=== PATIENT | male | born 1945 | race Caucasian/White ===

== ENCOUNTER 2016-04-29 08:06 | Inpatient (IN) ==
[2016-04-29 08:45] LABS: Basophils % 0.2 %; Hematocrit 41.3 % (37.5-50.1); Hemoglobin 13.7 g/dL (12.9-16.9); Immature Granulocytes % 0.4 % (0-4); Lymphocytes # 2.3 K/mcL (0.6-4.6); Lymphocytes % 9.7 %; Mean Corpuscular HGB Conc 33.2 g/dL (31.6-35.5); Mean Corpuscular Hemoglobin 29.4 pg (28.0-33.3); Mean Corpuscular Volume 88.6 fL (83.0-100.0); Monocytes # 2.2 K/mcL (0.0-1.3); Monocytes % 9.1 %; Neutrophils # 19.2 K/mcL (1.6-8.9); Platelet Count 294 K/mcL (140-400); Red Blood Count 4.66 M/mcL (4.19-5.50); Red Cell Distribution Width 14.1 % (11.5-14.5); Segmented Neutrophils % 80.6 %
[2016-04-29 08:46] LABS: INR 1.5; Prothrombin Time 16.4 Seconds (9.4-12.1)
[2016-04-29 08:47] LABS: Basophils # 0.1 K/mcL (0.0-0.2)
--- NOTE | 2016-04-29 08:51 | Emergency Department Note ---
Disposition Clinical Impression: Weakness, Sepsis, Dysphagia Disposition: Admitted As Inpatient Condition: Serious Neuro HPI - General Chief Complaint: ED Weakness Stated Complaint: weakness Time Seen by Provider: 04/29/16 08:06 Source: patient, EMS Limitations: no limitations, language barrier, altered mental status, physical limitation Nursing Notes Reviewed: Yes Vital Signs Reviewed: Yes - History of Present Illness HPI Narrative: 70 year old with copd and gerd, chronic unexplained contractures acute onset at 0720 this morning with garbled speech and right facial weakness improving during transport initial vitals were hypotensive and bradycardia sugar 116 on accucheck by ems Onset of Symptoms Date: 04/29/16 Onset of Symptoms Time: 07:20 Symptom Onset Unknown: Yes Timing confirmed by: caregiver Location: right face, right arm History of same: Yes Severity: moderate Quality: weakness Improves with: none Worsens with: none Context: sudden onset On Anticoagulants: No - Related Data Home Medications: Home Medications Medication Instructions Recorded Confirmed Bifidobacterium Infantis [Align] 4 mg PO DAILY 04/29/16 04/29/16 Gabapentin [Neurontin] 300 mg PO TID 04/29/16 04/29/16 Lisinopril [Zestril] 5 mg PO DAILY 04/29/16 04/29/16 Loratadine [Allergy Relief] 10 mg PO 04/29/16 Loratadine [Claritin] 10 mg PO 04/29/16 Metoclopramide [Reglan] 5 mg PO QIDAC 04/29/16 04/29/16 Oxycodone HCl [Oxaydo] 10 mg PO 04/29/16 Pantoprazole Sodium [Protonix] 40 mg PO DAILY 04/29/16 04/29/16 Sucralfate [Carafate] 1 gm PO 04/29/16 Allergies/Adverse Reactions: Allergies Allergy/AdvReac Type Severity Reaction Status Date / Time No Known Allergies Allergy Verified 09/29/14 14:26 All systems ED: reviewed and negative except as stated. Limitations: ROS unobtainable due to patients medical condition (poor) Constitutional: Reports: weakness. Denies: fever, chills Eyes: Denies: eye pain, eye discharge, vision change ENT ED: Denies: ear pain, throat pain, dental pain, hearing loss, epistaxis, congestion, dysphagia Cardiovascular: Denies: chest pain, palpitations, dyspnea on exertion, edema, syncope Respiratory: Reports: cough, wheezes, sputum production Gastrointestinal: Denies: abdominal pain, nausea, vomiting, diarrhea, constipation, hematemesis, melena, hematochezia Genitourinary: Denies: urgency, dysuria, frequency, hematuria Musculoskeletal: Reports: as per HPI Integumentary: Denies: rash, abrasion, lesions Neurological: Reports: as per HPI Psychiatric: Reports: as per HPI Endocrine: Denies: fatigue Allergic/Immunologic: Denies: facial swelling, urticaria Past Medical History - Past Medical History Medical history: Reports: COPD, GERD, hypertension, other (contractures, unexplained) Surgical history: Reports: orthopedic, other (Knee surgery), other (? esophageal dilatation, tonsillectomy) Psychiatric history: Reports: no psych history - Social History Smoking Status: Former smoker Smokeless Tobacco Status: No Alcohol use: Reports: none Drug use: Reports: none Physical Exam - General Limitations: language barrier General appearance: alert, in no apparent distress - Head Head exam: atraumatic - Eye Eye exam: Present: normal appearance, PERRL, EOMI - ENT ENT exam: normal exam - Neck Neck exam: Present: normal inspection - Chest Chest inspection: Present: symmetric chest wall rise - Respiratory Respiratory exam: Present: wheezes - Cardiovascular Cardiovascular exam: Present: regular rate, bradycardia - Abdominal Exam Abdominal exam: Present: soft, Non-Tender - Extremities Exam Extremities exam: Present: other (contractures) - Neurological Exam Neurological exam: Present: alert, CN II-XII intact - Psychiatric Psychiatric exam: Present: depressed - Skin Skin exam: Present: warm Course Course Narrative: patient seen and examined as arrive in [place] to [place] [facility] stroke activation Dr. ema smith and since infectious etiology probably hold TPA improving trop elevated wbc markedly elevated fluid bolus and antibiotics patient improved, stable and no change in troponin stable for admit, low risk here. full code Vital Signs Temperature 98.0 F 04/29/16 08:17 Pulse Rate 61 04/29/16 08:17 Respiratory Rate 18 04/29/16 08:17 Blood Pressure 133/76 04/29/16 08:17 O2 Sat by Pulse Oximetry 98 04/29/16 08:17 Temperature 98.1 F 04/29/16 18:32 Pulse Rate 58 04/29/16 18:32 Respiratory Rate 18 04/29/16 18:32 Blood Pressure 138/90 04/29/16 18:32 O2 Sat by Pulse Oximetry 99 04/29/16 18:32 Oxygen Delivery Oxygen Delivery Nasal Cannula Neuro Symptoms/Deficit - Differential Diagnosis Likely: cerebrovascular accident, transient cerebral ischemia, delirium - Medical Records Medical records reviewed: Yes I reviewed the patient's medical records. - Lab Data Lab results reviewed: Yes I reviewed the patient's lab results. Result diagrams: 04/29/16 08:30 04/29/16 08:30 Lab Results 04/29/16 04/29/16 04/29/16 Range/Units 08:21 08:30 08:30 WBC 23.8 H (4.3-11.1) K/mcL RBC 4.66 (4.19-5.50) M/mcL Hgb 13.7 (12.9-16.9) g/dL Hct 41.3 (37.5-50.1) % MCV 88.6 (83.0-100.0) fL MCH 29.4 (28.0-33.3) pg MCHC 33.2 (31.6-35.5) g/dL RDW 14.1 (11.5-14.5) % Plt Count 294 (140-400) K/mcL MPV 10.0 (9.4-12.4) fL Immature Gran % 0.4 (0-4) % Seg Neutrophils % 80.6 % Lymphocytes % 9.7 % Monocytes % 9.1 % Eosinophils % 0.0 % Basophils % 0.2 % Neutrophils # 19.2 H (1.6-8.9) K/mcL Lymphocytes # 2.3 (0.6-4.6) K/mcL Monocytes # 2.2 H (0.0-1.3) K/mcL Eosinophils # 0.0 (0.0-0.6) K/mcL Basophils # 0.1 (0.0-0.2) K/mcL PT 16.4 H (9.4-12.1) Seconds INR 1.5 VBG Lactic Acid (0.5-2.2) mmol/L Sodium (136-145) mEq/L Potassium (3.5-4.5) mEq/L Chloride (98-109) mEq/L Carbon Dioxide (19-29) mEq/L BUN (8-26) mg/dL Creatinine (0.72-1.25) mg/dL Est GFR ( Amer) (> 60) Est GFR (Non-Af Amer) (> 60) BUN/Creatinine Ratio (6-26) Glucose (70-99) mg/dL POC Glucose 110 H (58-89) Calculated Osmolality (280-300) Calcium (8.6-10.8) mg/dL Total Bilirubin (0.2-1.2) mg/dL AST (5-34) Units/L ALT (0-55) Units/L Alkaline Phosphatase (38-126) Units/L Troponin I (0-0.03) ng/mL Serum Total Protein (6.0-8.3) g/dL Albumin (3.5-5.0) g/dL Globulin (2.4-3.5) g/dL Albumin/Globulin Ratio (1.1-2.2) Urine Color (Yellow) Urine Clarity (Clear) Urine pH (5.0-8.0) pH Units Ur Specific [place] (1.010-1.025) Urine Protein (Neg-Trace) mg/dL Urine Glucose (UA) (Normal) mg/dL Urine Ketones (Negative) mg/dL Urine Blood (Negative) Urine Nitrite (Negative) Urine Bilirubin (Negative) Urine Urobilinogen (Normal) mg/dL Ur Leukocyte Esterase (Negative) Urine Microscopic RBC (0-3) per hpf Urine Microscopic WBC (0-3) per hpf Urine Bacteria (None-Few) per hpf Urine Mucus (Few) Ur Culture Indicated? (NO) 04/29/16 04/29/16 04/29/16 Range/Units 08:30 08:30 08:30 WBC (4.3-11.1) K/mcL RBC (4.19-5.50) M/mcL Hgb (12.9-16.9) g/dL Hct (37.5-50.1) % MCV (83.0-100.0) fL MCH (28.0-33.3) pg MCHC (31.6-35.5) g/dL RDW (11.5-14.5) % Plt Count (140-400) K/mcL MPV (9.4-12.4) fL Immature Gran % (0-4) % Seg Neutrophils % % Lymphocytes % % Monocytes % % Eosinophils % % Basophils % % Neutrophils # (1.6-8.9) K/mcL Lymphocytes # (0.6-4.6) K/mcL Monocytes # (0.0-1.3) K/mcL Eosinophils # (0.0-0.6) K/mcL Basophils # (0.0-0.2) K/mcL PT (9.4-12.1) Seconds INR VBG Lactic Acid 1.7 (0.5-2.2) mmol/L Sodium 139 (136-145) mEq/L Potassium 4.2 (3.5-4.5) mEq/L Chloride 105 (98-109) mEq/L Carbon Dioxide 22 (19-29) mEq/L BUN 26 (8-26) mg/dL Creatinine 1.15 (0.72-1.25) mg/dL Est GFR ( Amer) > 60 (> 60) Est GFR (Non-Af Amer) > 60 (> 60) BUN/Creatinine Ratio 23 (6-26) Glucose 109 H (70-99) mg/dL POC Glucose (58-89) Calculated Osmolality 293 (280-300) Calcium 8.8 (8.6-10.8) mg/dL Total Bilirubin 0.7 (0.2-1.2) mg/dL AST 11 (5-34) Units/L ALT 6 (0-55) Units/L Alkaline Phosphatase 83 (38-126) Units/L Troponin I 0.06 H* (0-0.03) ng/mL Serum Total Protein 7.2 (6.0-8.3) g/dL Albumin 3.2 L (3.5-5.0) g/dL Globulin 4.0 H (2.4-3.5) g/dL Albumin/Globulin Ratio 0.8 L (1.1-2.2) Urine Color (Yellow) Urine Clarity (Clear) Urine pH (5.0-8.0) pH Units Ur Specific [place] (1.010-1.025) Urine Protein (Neg-Trace) mg/dL Urine Glucose (UA) (Normal) mg/dL Urine Ketones (Negative) mg/dL Urine Blood (Negative) Urine Nitrite (Negative) Urine Bilirubin (Negative) Urine Urobilinogen (Normal) mg/dL Ur Leukocyte Esterase (Negative) Urine Microscopic RBC (0-3) per hpf Urine Microscopic WBC (0-3) per hpf Urine Bacteria (None-Few) per hpf Urine Mucus (Few) Ur Culture Indicated? (NO) 04/29/16 04/29/16 Range/Units 08:43 09:44 WBC (4.3-11.1) K/mcL RBC (4.19-5.50) M/mcL Hgb (12.9-16.9) g/dL Hct (37.5-50.1) % MCV (83.0-100.0) fL MCH (28.0-33.3) pg MCHC (31.6-35.5) g/dL RDW (11.5-14.5) % Plt Count (140-400) K/mcL MPV (9.4-12.4) fL Immature Gran % (0-4) % Seg Neutrophils % % Lymphocytes % % Monocytes % % Eosinophils % % Basophils % % Neutrophils # (1.6-8.9) K/mcL Lymphocytes # (0.6-4.6) K/mcL Monocytes # (0.0-1.3) K/mcL Eosinophils # (0.0-0.6) K/mcL Basophils # (0.0-0.2) K/mcL PT (9.4-12.1) Seconds INR VBG Lactic Acid (0.5-2.2) mmol/L Sodium (136-145) mEq/L Potassium (3.5-4.5) mEq/L Chloride (98-109) mEq/L Carbon Dioxide (19-29) mEq/L BUN (8-26) mg/dL Creatinine (0.72-1.25) mg/dL Est GFR ( Amer) (> 60) Est GFR (Non-Af Amer) (> 60) BUN/Creatinine Ratio (6-26) Glucose (70-99) mg/dL POC Glucose (58-89) Calculated Osmolality (280-300) Calcium (8.6-10.8) mg/dL Total Bilirubin (0.2-1.2) mg/dL AST (5-34) Units/L ALT (0-55) Units/L Alkaline Phosphatase (38-126) Units/L Troponin I 0.05 H* (0-0.03) ng/mL Serum Total Protein (6.0-8.3) g/dL Albumin (3.5-5.0) g/dL Globulin (2.4-3.5) g/dL Albumin/Globulin Ratio (1.1-2.2) Urine Color [place] A (Yellow) Urine Clarity Cloudy A (Clear) Urine pH 5.0 (5.0-8.0) pH Units Ur Specific [place] 1.015 (1.010-1.025) Urine Protein 30 H (Neg-Trace) mg/dL Urine Glucose (UA) Normal (Normal) mg/dL Urine Ketones Trace H (Negative) mg/dL Urine Blood Moderate H (Negative) Urine Nitrite Negative (Negative) Urine Bilirubin Small H (Negative) Urine Urobilinogen Normal (Normal) mg/dL Ur Leukocyte Esterase Trace H (Negative) Urine Microscopic RBC 5-15 H (0-3) per hpf Urine Microscopic WBC 15-30 H (0-3) per hpf Urine Bacteria Many H (None-Few) per hpf Urine Mucus Few (Few) Ur Culture Indicated? YES A (NO) - Radiology Data Radiology results reviewed: Yes I reviewed the patient's radiology results. Impressions Chest X-Ray 04/29/16 08:08 IMPRESSION: Right basilar linear opacity, atelectasis or focal scarring. Small lucencies projects inferior to the right hemidiaphragm. This is favored to represent artifact. However, upright view of the abdomen is recommended to evaluate for pneumoperitoneum. D/ / Basilio Saravia MD / Basilio Saravia MD Interpreting Provider: Basilio Saravia MD Head CT 04/29/16 08:08 IMPRESSION: No acute intracranial abnormality. Mild microvascular ischemic disease and remote bilateral basal ganglia thalamic lacunar infarcts. Findings were discussed with Kyle Rodrigez at 8:30 am on 04/29/2016. D/ / 04/29/2016 09:02:14 César Gandhi MD / jelly Interpreting Provider: César Gandhi MD Impressions Chest X-Ray 04/29/16 08:08 IMPRESSION: Right basilar linear opacity, atelectasis or focal scarring. Small lucencies projects inferior to the right hemidiaphragm. This is favored to represent artifact. However, upright view of the abdomen is recommended to evaluate for pneumoperitoneum. D/ / Basilio Saravia MD / Basilio Saravia MD Interpreting Provider: Basilio Saravia MD Head CT 04/29/16 08:08 IMPRESSION: No acute intracranial abnormality. Mild microvascular ischemic disease and remote bilateral basal ganglia thalamic lacunar infarcts. Findings were discussed with Kyle Rodrigez at 8:30 am on 04/29/2016. D/ / 04/29/2016 09:02:14 César Gandhi MD / jelly Interpreting Provider: César Gandhi MD Abdomen/Pelvis CT 04/29/16 09:30 IMPRESSION: Bibasilar lower lobe mild ground-glass opacification which could be related to an atypical infectious process or possible mild edema. Bibasilar atelectasis as well. Left-sided pulmonary nodules are identified, measuring 5.4 mm in greatest dimension, all of which appearing stable from September of 2014. Fleischner criteria for multiple solid nodule follow-up is below, which suggests an optional follow-up CT examination at 12 months for a high risk patient. Given the stability over 12 months, these likely represent benign nodules. There is distension of the distal sigmoid colon and rectum, with a large volume of stool which may be related to impaction. There is also a somewhat featureless appearing segment of distal sigmoid colon just above this area of potential impaction, with this type of appearance sometimes seen in the setting of colitis. Of note, no significant vascular disease or occlusion to suggest any concern for ischemia. RECOMMENDATIONS: Fleischner Society guidelines for follow-up and management of incidentally detected pulmonary nodules: Multiple Solid Nodules: Nodule size less than 6 mm In a low-risk patient, no routine follow-up. In a high-risk patient, optional CT at 12 months. Radiology 2017 http://pubs.rsna.org/doi/full/10.1148/radiol.[email or web address] D/ / Ced Ochoa MD / Ced Ochoa MD Interpreting Provider: Ced Ochoa MD Chest CT 04/29/16 09:31 IMPRESSION: Bibasilar lower lobe mild ground-glass opacification which could be related to an atypical infectious process or possible mild edema. Bibasilar atelectasis as well. Left-sided pulmonary nodules are identified, measuring 5.4 mm in greatest dimension, all of which appearing stable from September of 2014. Fleischner criteria for multiple solid nodule follow-up is below, which suggests an optional follow-up CT examination at 12 months for a high risk patient. Given the stability over 12 months, these likely represent benign nodules. There is distension of the distal sigmoid colon and rectum, with a large volume of stool which may be related to impaction. There is also a somewhat featureless appearing segment of distal sigmoid colon just above this area of potential impaction, with this type of appearance sometimes seen in the setting of colitis. Of note, no significant vascular disease or occlusion to suggest any concern for ischemia. RECOMMENDATIONS: Fleischner Society guidelines for follow-up and management of incidentally detected pulmonary nodules: Multiple Solid Nodules: Nodule size less than 6 mm In a low-risk patient, no routine follow-up. In a high-risk patient, optional CT at 12 months. Radiology 2017 http://pubs.rsna.org/doi/full/10.1148/radiol.[email or web address] D/ / Ced Ochoa MD / Ced Ochoa MD Interpreting Provider: Ced Ochoa MD - EKG Data EKG attestation: Yes I reviewed and interpreted this EKG. EKG shows normal: sinus rhythm NIH Stroke Scale - Level of Consciousness LOC: Alert - LOC Questions LOC Questions: Answers both correctly - LOC Commands LOC Commands: Performs both correctly - Best Gaze Best Gaze: Normal - Visual Visual: No visual loss - Facial Palsy Facial Palsy: Normal - Motor Arms Motor Arm-Right: Some effort against gravity, limb drifts to bed - Extinction and Inattention Extinction and Inattention: Normal TPA Checklist - Source Information Source: Patient - LKW: 3-4.5 hrs Add. Contraindications Patient/family understanding: The patient/family members have been counseled and understood the risk, benefit , and alternatives of treatment.
[2016-04-29 08:54] LABS: Bilirubin,Urine Small (Negative); Blood,Urine Moderate (Negative); Clarity,Urine Cloudy (Clear); Color,Urine Amber (Yellow); Glucose,Urine (UA) Normal (Normal); Ketones,Urine Trace mg/dL (Negative); Leukocyte Esterase,Urine Trace (Negative); Nitrite,Urine Negative (Negative); Protein,Urine 30 mg/dL (Neg-Trace); Specific Gravity,Urine 1.015 (1.010-1.025); Urobilinogen,Urine Normal (Normal)
[2016-04-29 09:02] LABS: Bacteria,Urine Many per hpf (None-Few); Mucus,Urine Few (Few); WBC,Urine 15-30 per hpf (0-3)
[2016-04-29 09:06] LABS: Alanine Aminotransferase 6 Units/L (0-55); Albumin 3.2 g/dL (3.5-5.0); Albumin/Globulin Ratio 0.8 (1.1-2.2); Alkaline Phosphatase 83 Units/L (38-126); Aspartate Amino Transferase 11 Units/L (5-34); BUN/Creatinine Ratio 23 (6-26); Bilirubin,Total 0.7 mg/dL (0.2-1.2); Blood Urea Nitrogen 26 mg/dL (8-26); Calcium 8.8 mg/dL (8.6-10.8); Carbon Dioxide 22 mEq/L (19-29); Chloride 105 mEq/L (98-109); Glucose 109 mg/dL (70-99); Osmolality,Calculated 293 (280-300); Potassium 4.2 mEq/L (3.5-4.5); Sodium 139 mEq/L (136-145); Total Protein 7.2 g/dL (6.0-8.3); eGFR For African Americans > 60 (> 60); eGFR For Non-African Americans > 60 (> 60)
[2016-04-29] MEDS ORDERED: Piperacillin/Tazobactam 3.375 GM in D5% in Water (Mini-Bag+) 100 ML IVPB ONE (09:15)
[2016-04-29] MEDS ORDERED: 0.9 % Sodium Chloride 500 ML IVC ONE (09:15)
[2016-04-29] MEDS ORDERED: 0.9 % Sodium Chloride 1,000 ML IVC SCH (11:45)
[2016-04-29] MEDS ORDERED: Naloxone 0.4 MG/ML INJ IVP PRN (14:17)
[2016-04-29] MEDS: Gabapentin 300 MG CAPSULE PO SCH ×2 (15:36→20:32)
[2016-04-29] MEDS: 0.9 % Sodium Chloride 1,000 ML IVC SCH ×2 (15:37→23:15)
--- NOTE | 2016-04-29 15:39 | Internal Med History&Physical ---
Date of Encounter: 04/29/16 Time of Encounter: 15:05 Assessment and Plan (1) Pneumonia Current visit: Yes Status: Acute He has been started on Zosyn. Will add lactobacillus. Further workup will be done as needed. Qualifiers: Pneumonia type: due to unspecified organism Laterality: bilateral Lung location: lower lobe of lung Qualified Code(s): J18.9 - Pneumonia, unspecified organism (2) Hypertension Current visit: Yes Status: Chronic Continue Zestril Qualifiers: Hypertension type: essential hypertension Qualified Code(s): I10 - Essential (primary) hypertension (3) UTI (urinary tract infection) Current visit: Yes Status: Acute He has been started on Zosyn. Urine and blood cultures have been ordered. Further workup will be done as needed. Qualifiers: Urinary tract infection type: site unspecified Hematuria presence: with hematuria Qualified Code(s): N39.0 - Urinary tract infection, site not specified; R31.9 - Hematuria, unspecified Internal Medicine - H&P: HPI Chief complaint: Acute neurologic deficit Admitted From: Long-term Nursing Facility Plans for Post Hospital Care: Transfer Intermediate Care History of present illness: Mr. Hunt is a 70 year old male who was sent to emergency room from [facility] after staff reported him to have onset of garbled speech and right face weakness approximately 0720 today. He was evaluated in emergency room with no evidence of acute infarct or hemorrhage on head CT. He had leukocytosis with possible bibasilar pneumonia seen on chest CT. He was admitted to [facility] floor for ongoing care needs. He is a fair historian at best. He was hospitalized last at [facility] in September 2014 with Ms. and he was discharged to [facility] and has remained there. He reports he has been unable to ambulate for approximately 9 months. Reports he has seen numerous physicians in various cities for a neurologic problem but could not relate what testing was done or what neurologic diagnoses were made. He has had progressive loss of movement in his arms and legs. He denied known large distribution strokes or seizures however head CT done in emergency room did show old bilateral basal ganglia and thalamic lacunar infarcts. Past Med Surg Social Fam HX - Past Medical History Medical history: COPD, GERD, hypertension, other Psychiatric history: no psych history - Past Surgical History Surgical History: orthopedic, other, other - Social History Smoking Status: Former smoker Smokeless Tobacco Status: No Alcohol use: none Drug use: none Internal Medicine - H&P: Meds Bifidobacterium Infantis [Align] 4 mg PO DAILY 04/29/16 [History] Gabapentin [Neurontin] 300 mg PO TID 04/29/16 [History] Lisinopril [Zestril] 5 mg PO DAILY 04/29/16 [History] Loratadine [Allergy Relief] 10 mg PO 04/29/16 [History] Loratadine [Claritin] 10 mg PO 04/29/16 [History] Metoclopramide [Reglan] 5 mg PO QIDAC 04/29/16 [History] Oxycodone HCl [Oxaydo] 10 mg PO 04/29/16 [History] Pantoprazole Sodium [Protonix] 40 mg PO DAILY 04/29/16 [History] Sucralfate [Carafate] 1 gm PO 04/29/16 [History] Allergies No Known Allergies Allergy (Verified 09/29/14 14:26) All Systems PM: A 10-system review of systems was performed and is negative for pertinent findings except as documented above in the HPI. Review of systems: Review of systems from his September 2014 [facility] hospitalization were reviewed and revised as below Gen.: His weight has been stable at approximately 68 kg since the September 2014 hospitalization. Cardiovascular: He has a history of hypertension. He is uncertain if he has had a myocardial infarction the past. He thinks he had a DVT approximately 2009 but did not receive treatment. He denies known heart failure or pulmonary embolus. Respiratory: He smoked from age 8 to age 68 up to 2-1/2 packs per day. He has not had PFTs and does not wear home O2. He has not been tested for sleep apnea. GI: He denies documented trouble with his liver, gallbladder, or exocrine pancreas. He thinks he had a colonoscopy approximately 1999 and an EGD approximately 1989. He states both of these were unremarkable. : He denies hematuria dysuria or kidney stones. Neurologic: As per history of present illness Endocrine: He denies diabetes, thyroid disease, or hyperlipidemia. Hematology/oncology: He denies internal malignancies or other blood disorders. He had anemia during his 2014 [facility] hospitalization but that has resolved. Psychiatric: He denies anxiety, depression, or other mental health issues. Musculoskeletal: he has DJD but denies known gout or osteoporosis. - Constitutional Vitals: Temp Pulse Resp BP Pulse Ox 97.8 F 52 14 123/76 97 04/29/16 13:40 04/29/16 13:40 04/29/16 13:40 04/29/16 13:40 04/29/16 13:58 Exam: Gen.: He is a well-developed well nourished male lying in bed who appears in minimal distress at present time HEENT: Head is atraumatic normocephalic. Eyes: EOMI. There is no scleral icterus. Mouth: Mucosa is moist. Neck: Supple and nontender. There is no thyromegaly or adenopathy noted. Heart: Regular without murmurs gallops or ectopics Lungs: No wheezes or crackles are heard. Abdomen: Soft and nontender. No masses or guarding are noted. Extremities: There is no cyanosis edema or clubbing noted. He has wasting of the interosseous muscles of his hands and appears to have contractures of left fourth and fifth finger. He has limited movement of the other fingers on his hands. He had his right knee contracture. Neurologic: Mental status: He is talkative and seems to be a fair historian. He does not remember some details of his history. Cranial nerves: Facial movements are minimal but appear to be symmetric. EOMI. Tongue protrudes midline. Forehead wrinkles bilaterally. Motor: There is no pronator drift. He does not move his fingers much. He does not move his legs spontaneously. Cerebellar: Finger to nose is intact bilaterally. Skin: Warm and dry Internal Med - H&P Results - Labs CBC & Chem 7: 04/29/16 08:30 04/29/16 08:30
[2016-04-29] MEDS ORDERED: Piperacillin/Tazobactam 3.375 GM in D5% in Water (Mini-Bag+) 100 ML IVPB SCH (16:00)
[2016-04-29] MEDS: *HR* Morphine 2 MG/ML SYRINGE IVP PRN ×3 (18:45→22:34)
[2016-04-29] MEDS: Piperacillin/Tazobactam 3.375 GM in D5% in Water (Mini-Bag+) 100 ML IVPB SCH (18:50)
[2016-04-29] MEDS: Lactobacillus 1 EACH CAP.SPRINK PO SCH (20:32)
[2016-04-30] MEDS: Piperacillin/Tazobactam 3.375 GM in D5% in Water (Mini-Bag+) 100 ML IVPB SCH ×3 (01:38→17:59)
[2016-04-30] MEDS: Lactobacillus 1 EACH CAP.SPRINK PO SCH ×2 (07:31→21:38)
[2016-04-30] MEDS: Gabapentin 300 MG CAPSULE PO SCH ×3 (07:31→21:38)
[2016-04-30] MEDS ORDERED: Lactobacillus 1 EACH CAP.SPRINK PO SCH (09:00)
--- NOTE | 2016-04-30 10:04 | Internal Med Progress Note ---
Date of Encounter: 04/30/16 Time of Encounter: 09:55 - Assessment and plan (1) Pneumonia Current Visit: Yes Status: Acute Assessment and plan: April 30. Continue Zosyn and lactobacillus. Qualifiers: Pneumonia type: due to unspecified organism Laterality: bilateral Lung location: lower lobe of lung Qualified Code(s): J18.9 - Pneumonia, unspecified organism (2) Hypertension Current Visit: Yes Status: Chronic Assessment and plan: April 30. Continue Zestril. Qualifiers: Hypertension type: essential hypertension Qualified Code(s): I10 - Essential (primary) hypertension (3) UTI (urinary tract infection) Current Visit: Yes Status: Acute Assessment and plan: April 30. Continue Zosyn Qualifiers: Urinary tract infection type: site unspecified Hematuria presence: with hematuria Qualified Code(s): N39.0 - Urinary tract infection, site not specified; R31.9 - Hematuria, unspecified - Subjective Interval history: April 30. He has no new complaints. - Constitutional Vitals: Temp Pulse Resp BP Pulse Ox 97.8 F 60 14 163/89 99 04/30/16 08:03 04/30/16 08:03 04/30/16 08:03 04/30/16 08:03 04/30/16 08:03 Exam: He is resting comfortably in bed. His lungs are clear. Smile is symmetric. Tongue protrudes midline. He is scheduled for MBS later today at [facility]. Internal Medicine: Result - Labs CBC & Chem 7: 04/29/16 08:30 04/29/16 08:30 - ABG Interpretation ABG results: PT/INR, D-dimer PT 16.4 Seconds (9.4-12.1) H 04/29/16 08:30 Consult Discharge Plan - Plan Referrals: NO,PCP [Primary Care Provider] - 1 week
[2016-04-30] MEDS: *HR* Morphine 2 MG/ML SYRINGE IVP PRN ×2 (11:32→15:41)
--- NOTE | 2016-04-30 17:46 | Electrocardiograph Report ---
[address] [place], [place] [address] Test Date: 2016-04-29 Pat Name: Kilo Hunt Department: [id number] Room: [facility] Gender: M [employer]ician: : 1945 Requested By: Kyle Rodrigez Order Number: [id number] Reading MD: Leidy Covington Measurements Intervals [place] Rate: 53 P: -37 HI: 209 QRS: -21 QRSD: 98 T: -2 QT: 420 QTc: 402 Interpretive Statements SINUS BRADYCARDIA WITH SINUS ARRHYTHMIA BORDERLINE LEFT AXIS DEVIATION MODERATE VOLTAGE CRITERIA FOR LVH, CONSIDER NORMAL VARIANT NONSPECIFIC T-WAVE ABNORMALITY Electronically Signed On 04-30-2016 17:44:50 EST by Leidy Covington
[2016-04-30] MEDS: 0.9 % Sodium Chloride 1,000 ML IVC SCH (21:49)
[2016-05-01] MEDS: Piperacillin/Tazobactam 3.375 GM in D5% in Water (Mini-Bag+) 100 ML IVPB SCH ×2 (02:04→10:50)
[2016-05-01] MEDS: 0.9 % Sodium Chloride 1,000 ML IVC SCH ×4 (06:42→14:32)
[2016-05-01] MEDS: Gabapentin 300 MG CAPSULE PO SCH ×2 (10:49→14:33)
[2016-05-01] MEDS: Lactobacillus 1 EACH CAP.SPRINK PO SCH (10:49)
[2016-05-01] MEDS: *HR* Morphine 2 MG/ML SYRINGE IVP PRN (13:01)
[2016-05-01 13:59] LABS: Basophils % 0.2 %; Eosinophils # 0.1 K/mcL (0.0-0.6); Eosinophils % 0.7 %; Hematocrit 34.8 % (37.5-50.1); Hemoglobin 11.8 g/dL (12.9-16.9); Immature Granulocytes % 0.2 % (0-4); Lymphocytes # 1.9 K/mcL (0.6-4.6); Lymphocytes % 14.8 %; Mean Corpuscular HGB Conc 33.9 g/dL (31.6-35.5); Mean Corpuscular Hemoglobin 29.4 pg (28.0-33.3); Mean Corpuscular Volume 86.8 fL (83.0-100.0); Mean Platelet Volume 9.8 fL (9.4-12.4); Monocytes % 8.1 %; Neutrophils # 9.7 K/mcL (1.6-8.9); Platelet Count 243 K/mcL (140-400); Red Blood Count 4.01 M/mcL (4.19-5.50); Red Cell Distribution Width 13.1 % (11.5-14.5)
[2016-05-01 14:14] LABS: BUN/Creatinine Ratio 15 (6-26); Blood Urea Nitrogen 10 mg/dL (8-26); Calcium 8.3 mg/dL (8.6-10.8); Carbon Dioxide 21 mEq/L (19-29); Chloride 106 mEq/L (98-109); Glucose 118 mg/dL (70-99); Osmolality,Calculated 284 (280-300); Potassium 3.6 mEq/L (3.5-4.5); Sodium 137 mEq/L (136-145); eGFR For African Americans > 60 (> 60); eGFR For Non-African Americans > 60 (> 60)
--- NOTE | 2016-05-01 14:27 | Discharge Summary ---
Date of Encounter: 05/01/16 Time of Encounter: 08:50 - Discharge Diagnosis (1) Pneumonia Priority: Primary Status: Acute Qualifiers: Pneumonia type: due to unspecified organism Laterality: bilateral Lung location: lower lobe of lung Qualified Code(s): J18.9 - Pneumonia, unspecified organism (2) Hypertension Priority: Secondary Status: Chronic Qualifiers: Hypertension type: essential hypertension Qualified Code(s): I10 - Essential (primary) hypertension (3) UTI (urinary tract infection) Priority: Secondary Status: Acute Qualifiers: Urinary tract infection type: site unspecified Hematuria presence: with hematuria Qualified Code(s): N39.0 - Urinary tract infection, site not specified; R31.9 - Hematuria, unspecified - Discharge Medications Prescriptions: Amoxicillin/Clavulanate [Augmentin] 875 mg PO BIDWM 3 Days Bifidobacterium Infantis [Align] 4 mg PO DAILY 3 Days Home Medications: Gabapentin [Neurontin] 300 mg PO TID 04/29/16 [History] Lisinopril [Zestril] 5 mg PO DAILY 04/29/16 [History] Metoclopramide [Reglan] 5 mg PO QIDAC 04/29/16 [History] Oxycodone HCl [Oxaydo] 10 mg PO 04/29/16 [History] Pantoprazole Sodium [Protonix] 40 mg PO DAILY 04/29/16 [History] Sucralfate [Carafate] 1 gm PO 04/29/16 [History] Amoxicillin/Clavulanate [Augmentin] 875 mg PO BIDWM 3 Days 05/01/16 [Rx] Bifidobacterium Infantis [Align] 4 mg PO DAILY 3 Days 05/01/16 [Rx] Loratadine [Allergy Relief] 10 mg PO DAILY PRN #0 05/01/16 [Rx] Allergies/Adverse Reactions: Allergies No Known Allergies Allergy (Verified 09/29/14 14:26) Date of admission: 04/29/16 15:25 Primary care physician: Ced Wayne M.D. - Patient Status Disposition: Transfer SNF Condition: Serious Overall status at discharge: patient is progressing back to baseline - Discharge Instructions Follow Up With: Ced Wayne MD [Partnered Physician] - 1 week (At [facility]) - Diet and Activity Activity: resume usual activities as tolerated Diet: advance to your usual diet Hospital course: Mr. Hunt is a 70 year old male who was sent to emergency room from [facility] after staff reported him to have onset of garbled speech and right face weakness approximately 0720 today. He was evaluated in emergency room with no evidence of acute infarct or hemorrhage on head CT. He had leukocytosis with possible bibasilar pneumonia seen on chest CT. He was admitted to [facility] for ongoing care needs. The initial orders were written by the emergency room physician. I saw him on April 29 and performed the history and physical. He was started on IV Zosyn by the emergency room physician. Urine culture was ordered but not collected. I added lactobacillus. He had clinical improvement with WBC decreasing to 12.7 on May 01 with 76% segs present. Will continue with Augmentin and probiotics for 3 additional days after discharge to [facility]. I did not find evidence of neurologic deficit on exam. He will not be started on antiplatelet agent at this time but this could be considered if symptoms recur. He remained afebrile during his hospital stay. When I saw him on May 01 I felt he was stable for discharge back to the custodial where he will follow with Dr. Wayne. - Time Spent with Patient Total time spent providing and/or coordinating discharge services: - Constitutional Vitals: Temp Pulse Resp BP Pulse Ox 97.5 F L 58 18 187/90 96 05/01/16 10:59 05/01/16 10:59 05/01/16 10:59 05/01/16 10:59 05/01/16 10:59
[2016-05-01 14:56] VITALS: BP 200/92
== END 2016-05-01 18:00 | DRG 190 ==
LOC: INPPIK 08:06 → EMEROOPIK 08:06 → INPPIK 12:11
PROVIDERS: ADMIT Internal Medicine; ATTEND Internal Medicine

== ENCOUNTER 2016-07-18 22:11 | Inpatient (IN) ==
[2016-07-18] MEDS ORDERED: 0.9 % Sodium Chloride 1,000 ML IVC ONE (22:31)
[2016-07-18] MEDS ORDERED: *HR* OxyCODONE/APAP 5/325 TABLET PO ONE (22:32)
[2016-07-18] MEDS ORDERED: Ibuprofen 600 MG TABLET PO ONE (22:32)
--- NOTE | 2016-07-18 22:36 | Emergency Department Note ---
Disposition Clinical Impression: Pneumonia Disposition: Admitted As Inpatient Condition: Fair Time of Disposition: 00:31 (shanda vigil) Fever HPI - General Chief Complaint: ED Fever Stated Complaint: body aches and fever Time Seen by Provider: 07/18/16 22:25 Source: patient Mode of arrival: ambulatory Limitations: no limitations Nursing Notes Reviewed: Yes Vital Signs Reviewed: Yes - History of Present Illness HPI Narrative: Patient sent in from the [facility] for complaining of fever aches gum pain cough congestion and phlegm production patient denies though chest pain denies neck pain neck stiffness says I want to be left alone does not answer any further questions Pt Subjective Complaint: fever, malaise, weakness Onset (ago): day(s) (1) Maximum Temperature Reported: 102 F Temperature Source: oral Associated symptoms: Reports: chills, nasal congestion, sore throat, other ( generalized aches reported gum ache). Denies: rigors, myalgias, headache, rhinorrhea, stiff neck, cough, chest pain, dyspnea, abdominal pain, nausea, vomiting, diarrhea, dysuria, rash, altered mental status, night sweats, weight loss Improves with: acetaminophen, ibuprofen Worsens with: nothing Treatments prior to arrival fever: none - Related Data Home Medications Medication Instructions Recorded Confirmed Gabapentin [Neurontin] 300 mg PO TID 04/29/16 07/18/16 Lisinopril [Zestril] 5 mg PO DAILY 04/29/16 07/18/16 Metoclopramide [Reglan] 5 mg PO QIDAC 04/29/16 07/18/16 Pantoprazole Sodium [Protonix] 40 mg PO DAILY 04/29/16 07/18/16 Sucralfate [Carafate] 1 gm PO QID 04/29/16 07/18/16 Bifidobacterium Infantis [Align] 4 mg PO BID 07/18/16 07/18/16 Cetirizine HCl [Zyrtec] 10 mg PO QAM 07/18/16 07/18/16 Cholecalciferol (Vitamin D3) 1,000 unit PO QAM 07/18/16 07/18/16 [Vitamin D] Organidin Mr 400 mg PO BID 07/18/16 07/18/16 Oxybutynin [Ditropan] 5 mg PO DAILY 07/18/16 07/18/16 Oxycodone HCl/Acetaminophen 1 each PO QID 07/18/16 07/18/16 [Percocet 10-325 mg Tablet] Sennosides [Senna] 8.6 mg PO BID 07/18/16 07/18/16 Allergies Allergy/AdvReac Type Severity Reaction Status Date / Time No Known Allergies Allergy Verified 09/29/14 14:26 Limitations: ROS unobtainable due to patients medical condition (those provided by Nurse home) Constitutional: Reports: fever Eyes: Denies: eye pain ENT ED: Reports: throat pain, congestion. Denies: ear pain Cardiovascular: Denies: chest pain, palpitations Respiratory: Reports: cough, sputum production Gastrointestinal: Denies: abdominal pain Genitourinary: Denies: urgency, dysuria Musculoskeletal: Reports: myalgia. Denies: back pain Integumentary: Denies: abrasion Neurological: Reports: weakness. Denies: headache Psychiatric: Denies: anxiety Endocrine: Reports: fatigue Hematological/Lymphatic: Denies: easy bleeding Allergic/Immunologic: Denies: urticaria Fever PMH - Past Medical History Medical history: Reports: COPD, GERD, hypertension, other (contractures, unexplained) Surgical history: Reports: orthopedic, other (Knee surgery), other (? esophageal dilatation, tonsillectomy) Psychiatric history: Reports: no psych history - Social History Smoking Status: Former smoker Alcohol use: Reports: none Drug use: Reports: none Physical Exam - General Limitations: physical limitation General appearance: alert, in no apparent distress, other ( postion lying on his right side) - Head Head exam: atraumatic, normocephalic, normal inspection - Eye Eye exam: Present: normal appearance, PERRL, EOMI - ENT ENT exam: normal oropharynx, mucous membranes dry, TM's normal bilaterally, normal external ear exam - Neck Neck exam: Present: normal inspection, full ROM, trachea midline - Chest Chest inspection: Present: normal inspection, symmetric chest wall rise - Respiratory Respiratory exam: Present: normal lung sounds bilaterally - Cardiovascular Cardiovascular exam: Present: tachycardia - Abdominal Exam Abdominal exam: Present: soft, Non-Tender, normal bowel sounds. Absent: mass, pulsatile mass - Extremities Exam Extremities exam: Present: normal inspection, normal capillary refill, other ( position contractures of the right hand holdng hand with the eft). Absent: joint swelling - Expanded Lower Extremity Exam Neurovascular/Tendon exam: Present: normal capillary refill, normal fine/light touch - Back Exam Back exam: Present: normal inspection, full ROM. Absent: muscle spasm - Neurological Exam Neurological exam: Present: alert, CN II-XII intact, other (cranky) - Psychiatric Psychiatric exam: Present: agitated - Skin Skin exam: Present: warm, dry, intact Course Course Narrative: Patient seen and examined labs obtained chest x-ray obtained disposition pending - Reevaluation(s) Reevaluation #1: Laboratory data has been obtained patient be admitted spoke with Dr. Montanez he agrees for admission most likely this is concern for aspiration pneumonia Reevaluation #2: Hypertension patient was given 2 L of normal saline based upon 30 ML's per kilogram patient responded well with blood pressure coming up to 96/54 after the first 250 ML's Vital Signs Temperature 101.5 F H 07/18/16 22:16 Pulse Rate 103 07/18/16 22:16 Respiratory Rate 16 07/18/16 22:16 Blood Pressure 150/84 07/18/16 22:16 O2 Sat by Pulse Oximetry 88 07/18/16 22:16 Temperature 99.0 F 07/19/16 01:45 Pulse Rate 68 07/19/16 02:15 Respiratory Rate 16 07/19/16 02:15 Blood Pressure 100/57 07/19/16 02:15 O2 Sat by Pulse Oximetry 97 07/19/16 02:15 Oxygen Delivery Oxygen Delivery Nasal Cannula Fever - Differential Diagnosis Likely: community acquired pneumonia, pyelonephritis, viral infection, sepsis - Medical Records Medical records reviewed: Yes I reviewed the patient's medical records. - Lab Data Lab results reviewed: Yes I reviewed the patient's lab results. Result diagrams: 07/18/16 23:02 07/18/16 23:02 Lab Results 07/18/16 07/18/16 07/18/16 Range/Units 23:02 23:02 23:02 WBC 15.8 H (4.3-11.1) K/mcL RBC 4.62 (4.19-5.50) M/mcL Hgb 13.4 (12.9-16.9) g/dL Hct 41.6 (37.5-50.1) % MCV 90.0 (83.0-100.0) fL MCH 29.0 (28.0-33.3) pg MCHC 32.2 (31.6-35.5) g/dL RDW 14.3 (11.5-14.5) % Plt Count 241 (140-400) K/mcL MPV 10.4 (9.4-12.4) fL Immature Gran % 0.2 (0-4) % Seg Neutrophils % 85.7 % Lymphocytes % 5.3 % Monocytes % 8.6 % Eosinophils % 0.1 % Basophils % 0.1 % Neutrophils # 13.5 H (1.6-8.9) K/mcL Lymphocytes # 0.8 (0.6-4.6) K/mcL Monocytes # 1.4 H (0.0-1.3) K/mcL Eosinophils # 0.0 (0.0-0.6) K/mcL Basophils # 0.0 (0.0-0.2) K/mcL PT (9.4-12.1) Seconds INR APTT 35.7 (26.0-36.0) Seconds VBG Lactic Acid (0.5-2.2) mmol/L Sodium 142 (136-145) mEq/L Potassium 3.6 (3.5-4.5) mEq/L Chloride 108 (98-109) mEq/L Carbon Dioxide 18 L (19-29) mEq/L BUN 13 (8-26) mg/dL Creatinine 0.70 L (0.72-1.25) mg/dL Est GFR ( Amer) > 60 (> 60) Est GFR (Non-Af Amer) > 60 (> 60) BUN/Creatinine Ratio 19 (6-26) Glucose 100 H (70-99) mg/dL Calculated Osmolality 294 (280-300) Calcium 9.0 (8.6-10.8) mg/dL Total Bilirubin 0.5 (0.2-1.2) mg/dL AST 10 (5-34) Units/L ALT < 6 (0-55) Units/L Alkaline Phosphatase 77 (38-126) Units/L Troponin I (0-0.03) ng/mL Serum Total Protein 7.3 (6.0-8.3) g/dL Albumin 3.4 L (3.5-5.0) g/dL Globulin 3.9 H (2.4-3.5) g/dL Albumin/Globulin Ratio 0.9 L (1.1-2.2) 07/18/16 07/18/16 07/18/16 Range/Units 23:02 23:02 23:02 WBC (4.3-11.1) K/mcL RBC (4.19-5.50) M/mcL Hgb (12.9-16.9) g/dL Hct (37.5-50.1) % MCV (83.0-100.0) fL MCH (28.0-33.3) pg MCHC (31.6-35.5) g/dL RDW (11.5-14.5) % Plt Count (140-400) K/mcL MPV (9.4-12.4) fL Immature Gran % (0-4) % Seg Neutrophils % % Lymphocytes % % Monocytes % % Eosinophils % % Basophils % % Neutrophils # (1.6-8.9) K/mcL Lymphocytes # (0.6-4.6) K/mcL Monocytes # (0.0-1.3) K/mcL Eosinophils # (0.0-0.6) K/mcL Basophils # (0.0-0.2) K/mcL PT 14.1 H (9.4-12.1) Seconds INR 1.3 APTT (26.0-36.0) Seconds VBG Lactic Acid 1.4 (0.5-2.2) mmol/L Sodium (136-145) mEq/L Potassium (3.5-4.5) mEq/L Chloride (98-109) mEq/L Carbon Dioxide (19-29) mEq/L BUN (8-26) mg/dL Creatinine (0.72-1.25) mg/dL Est GFR ( Amer) (> 60) Est GFR (Non-Af Amer) (> 60) BUN/Creatinine Ratio (6-26) Glucose (70-99) mg/dL Calculated Osmolality (280-300) Calcium (8.6-10.8) mg/dL Total Bilirubin (0.2-1.2) mg/dL AST (5-34) Units/L ALT (0-55) Units/L Alkaline Phosphatase (38-126) Units/L Troponin I 0.01 (0-0.03) ng/mL Serum Total Protein (6.0-8.3) g/dL Albumin (3.5-5.0) g/dL Globulin (2.4-3.5) g/dL Albumin/Globulin Ratio (1.1-2.2) - Radiology Data Radiology results reviewed: Yes I reviewed the patient's radiology results. ITS Impressions Chest X-Ray 07/18/16 22:32 IMPRESSION: Re-demonstration of right lower lobe infiltrate and right effusion. Cardiomegaly. D/ / 07/18/2016 23:12:52 Kavitha Oneil MD / Laura Kimble Interpreting Provider: Kavitha Oneil MD - EKG Data EKG attestation: Yes I reviewed and interpreted this EKG. EKG results narrative: Sinus tach rate 109 ND-2 29 QRS 101 QT 314 axis -19 unifocal PVC nonspecific T- wave Critical Care Time Critical Care Time: No
[2016-07-18 23:24] LABS: Basophils % 0.1 %; Eosinophils % 0.1 %; Hematocrit 41.6 % (37.5-50.1); Hemoglobin 13.4 g/dL (12.9-16.9); Immature Granulocytes % 0.2 % (0-4); Lymphocytes # 0.8 K/mcL (0.6-4.6); Lymphocytes % 5.3 %; Mean Corpuscular HGB Conc 32.2 g/dL (31.6-35.5); Mean Platelet Volume 10.4 fL (9.4-12.4); Monocytes # 1.4 K/mcL (0.0-1.3); Monocytes % 8.6 %; Neutrophils # 13.5 K/mcL (1.6-8.9); Platelet Count 241 K/mcL (140-400); Red Blood Count 4.62 M/mcL (4.19-5.50); Red Cell Distribution Width 14.3 % (11.5-14.5); Segmented Neutrophils % 85.7 %
[2016-07-18 23:32] LABS: INR 1.3; Prothrombin Time 14.1 Seconds (9.4-12.1)
[2016-07-18 23:49] LABS: Alanine Aminotransferase < 6 Units/L (0-55); Albumin 3.4 g/dL (3.5-5.0); Albumin/Globulin Ratio 0.9 (1.1-2.2); Alkaline Phosphatase 77 Units/L (38-126); Aspartate Amino Transferase 10 Units/L (5-34); BUN/Creatinine Ratio 19 (6-26); Bilirubin,Total 0.5 mg/dL (0.2-1.2); Blood Urea Nitrogen 13 mg/dL (8-26); Carbon Dioxide 18 mEq/L (19-29); Chloride 108 mEq/L (98-109); Globulin 3.9 g/dL (2.4-3.5); Glucose 100 mg/dL (70-99); Osmolality,Calculated 294 (280-300); Potassium 3.6 mEq/L (3.5-4.5); Sodium 142 mEq/L (136-145); Total Protein 7.3 g/dL (6.0-8.3); eGFR For African Americans > 60 (> 60); eGFR For Non-African Americans > 60 (> 60)
[2016-07-19] MEDS ORDERED: Azithromycin 500 MG in D5% in Water 250 ML IVPB ONE (00:25)
[2016-07-19] MEDS ORDERED: Clindamycin 600 MG/50 ML 600 MG/50 ML IV.SOLN IVPB ONE (00:25)
[2016-07-19] MEDS ORDERED: 0.9 % Sodium Chloride 1,000 ML IVC ONE ×2 (01:50→01:53)
[2016-07-19] MEDS ORDERED: 0.9 % Sodium Chloride 500 ML ONE (01:51)
[2016-07-19] MEDS ORDERED: 0.9 % Sodium Chloride 1,000 ML IVC SCH (04:07)
[2016-07-19] MEDS ORDERED: Naloxone 0.4 MG/ML INJ IVP PRN (04:07)
[2016-07-19] MEDS ORDERED: *HR* Enoxaparin 40 MG/0.4 ML SYRINGE SQ SCH (06:00)
[2016-07-19] MEDS: Patient Taking Own Medication 1 EACH PO SCH ×2 (07:37→23:44)
[2016-07-19] MEDS: Lactobacillus 1 EACH CAP.SPRINK PO SCH ×2 (07:41→20:48)
[2016-07-19] MEDS: Gabapentin 300 MG CAPSULE PO SCH ×3 (07:41→20:48)
[2016-07-19] MEDS: Cholecalciferol (D-3) 1,000 UNIT TABLET PO SCH (07:42)
[2016-07-19] MEDS: Sennosides 8.6 MG TABLET PO SCH ×2 (07:42→20:48)
[2016-07-19] MEDS ORDERED: Loratadine 10 MG TABLET PO SCH (09:00)
[2016-07-19] MEDS: *HR* OxyCODONE/APAP 10/325 TABLET PO SCH ×4 (11:44→22:07)
--- NOTE | 2016-07-19 11:54 | Internal Med History&Physical ---
Date of Encounter: 07/19/16 Time of Encounter: 11:30 Assessment and Plan (1) Pneumonia Current visit: No Status: Acute He has been started on Rocephin and Zithromax with lactobacillus through emergency room. I will order chest CT to further evaluate. He will be monitored for signs of aspiration. Further workup will be done as needed. Qualifiers: Pneumonia type: due to unspecified organism Laterality: bilateral Lung location: lower lobe of lung Qualified Code(s): J18.9 - Pneumonia, unspecified organism (2) COPD (chronic obstructive pulmonary disease) Current visit: No Status: Chronic Presumed. Room air oximetry will be checked prior to return to the half-way. Qualifiers: COPD type: unspecified COPD Qualified Code(s): J44.9 - Chronic obstructive pulmonary disease, unspecified Internal Medicine - H&P: HPI Chief complaint: Cough with dyspnea, fever Admitted From: Long-term Nursing Facility Plans for Post Hospital Care: Transfer [facility] History of present illness: Mr. Hunt is a 70 year old male who was brought from [facility] after staff report him to have had fever up to 102. He complained of dyspnea and cough worsening over the preceding hours. He was evaluated in emergency room and felt to have right lung pneumonia. He was admitted to [facility] floor for ongoing care needs. He was hospitalized at [facility] April 2016 with pneumonia. His respiratory history is significant for having smoked from age [age] up to 2-1/2 packs per day. He has not had PFTs and does not were oxygen at the half-way. He has not been tested for sleep apnea. Past Med Surg Social Fam HX - Past Medical History Medical history: COPD, GERD, hypertension, other Psychiatric history: no psych history - Past Surgical History Surgical History: orthopedic, other, other - Social History Smoking Status: Former smoker Smokeless Tobacco Status: No Alcohol use: none Drug use: none Internal Medicine - H&P: Meds Gabapentin [Neurontin] 300 mg PO TID 04/29/16 [History] Lisinopril [Zestril] 5 mg PO DAILY 04/29/16 [History] Metoclopramide [Reglan] 5 mg PO QIDAC 04/29/16 [History] Pantoprazole Sodium [Protonix] 40 mg PO DAILY 04/29/16 [History] Sucralfate [Carafate] 1 gm PO QID 04/29/16 [History] Bifidobacterium Infantis [Align] 4 mg PO BID 07/18/16 [History] Cetirizine HCl [Zyrtec] 10 mg PO QAM 07/18/16 [History] Cholecalciferol (Vitamin D3) [Vitamin D] 1,000 unit PO QAM 07/18/16 [History] Organidin Mr 400 mg PO BID 07/18/16 [History] Oxybutynin [Ditropan] 5 mg PO DAILY 07/18/16 [History] Oxycodone HCl/Acetaminophen [Percocet 10-325 mg Tablet] 1 each PO QID 07/18/16 [ History] Sennosides [Senna] 8.6 mg PO BID 07/18/16 [History] Allergies No Known Allergies Allergy (Verified 09/29/14 14:26) All Systems PM: A 10-system review of systems was performed and is negative for pertinent findings except as documented above in the HPI. Review of systems: Review of systems from his April 2016 [facility] hospitalization were reviewed and revised as below Gen.: His weight has decreased from 68.039 kg at the April 2016 hospitalization to 66.224 kg now. Cardiovascular: He has a history of hypertension. He is uncertain if he has had a myocardial infarction the past. He thinks he had a DVT approximately 2009 but did not receive treatment. He denies known heart failure or pulmonary embolus. Respiratory: As per history of present illness GI: He denies documented trouble with his liver, gallbladder, or exocrine pancreas. He thinks he had a colonoscopy approximately 1999 and an EGD approximately 1989. He states both of these were unremarkable. : He denies hematuria dysuria or kidney stones. 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 He has had progressive loss of movement in his arms and legs. He does not ambulate at the half-way. He has not had documented seizures. Endocrine: He denies diabetes, thyroid disease, or hyperlipidemia. Hematology/oncology: He denies internal malignancies or other blood disorders. He had anemia during his 2014 [facility] hospitalization but that has resolved. Psychiatric: He denies anxiety, depression, or other mental health issues. Musculoskeletal: He has DJD but denies known gout or osteoporosis. - Constitutional Vitals: Temp Pulse Resp BP Pulse Ox 98.0 F 66 16 121/72 92 07/19/16 11:00 07/19/16 11:00 07/19/16 11:00 07/19/16 11:00 07/19/16 11:00 Exam: Gen.: He is a well-developed lean male lying in bed who appears in no acute distress HEENT: Head is atraumatic and normocephalic. Eyes: EOMI. There is no scleral icterus. Mouth: Mucosa is moist. Neck: There is no thyromegaly or adenopathy noted. Heart: Regular without murmurs gallops or ectopics. Lungs: No wheezes or crackles are heard. No areas of consolidation are heard. Abdomen: Soft and nontender. No masses or guarding noted. Extremities: There is no cyanosis edema or clubbing noted. Dorsalis pedis and posttibial pulses are trace to 1+ palpable bilaterally. He has intrinsic muscle wasting of the hand muscles bilaterally, more on the left than the right. He has flexion contractures of his fourth and fifth fingers bilaterally. Neurologic: Mental status: He is able to answer a few questions but is a fair historian overall. Cranial nerves: Smile is symmetric. Forehead wrinkles bilaterally. Tongue protrudes midline. EOMI. Motor: He is very stiff and does not move much spontaneously. No further neurologic testing is attempted. Skin: Warm and dry Internal Med - H&P Results - Labs CBC & Chem 7: 07/18/16 23:02 07/18/16 23:02
[2016-07-19] MEDS: 0.9 % Sodium Chloride 1,000 ML IVC SCH ×2 (12:37→17:41)
[2016-07-19] MEDS ORDERED: Azithromycin 500 MG in D5% in Water 250 ML IVPB SCH (13:00)
[2016-07-19] MEDS: Azithromycin 500 MG in D5% in Water 250 ML IVPB SCH (20:49)
[2016-07-19 23:15] LABS: Bilirubin,Urine Negative (Negative); Blood,Urine Moderate (Negative); Clarity,Urine Clear (Clear); Glucose,Urine (UA) Normal (Normal); Ketones,Urine Negative (Negative); Leukocyte Esterase,Urine Trace (Negative); Nitrite,Urine Negative (Negative); Protein,Urine Negative (Neg-Trace); Specific Gravity,Urine 1.015 (1.010-1.025); Urobilinogen,Urine Normal (Normal)
[2016-07-19 23:25] LABS: Color,Urine Light Yellow (Yellow)
[2016-07-19 23:38] LABS: Bacteria,Urine Few per hpf (None-Few)
[2016-07-19 23:39] LABS: Mucus,Urine Few (Few); WBC,Urine 15-30 per hpf (0-3)
[2016-07-19 23:41] LABS: Squamous Epithelial Cell,Urine Few per lpf (None-Few)
[2016-07-20] MEDS: *HR* Enoxaparin 40 MG/0.4 ML SYRINGE SQ SCH (06:08)
[2016-07-20 06:37] LABS: Basophils % 0.2 %; Eosinophils # 0.1 K/mcL (0.0-0.6); Eosinophils % 1.1 %; Hematocrit 33.1 % (37.5-50.1); Hemoglobin 10.7 g/dL (12.9-16.9); Immature Granulocytes % 0.2 % (0-4); Lymphocytes # 1.5 K/mcL (0.6-4.6); Lymphocytes % 13.2 %; Mean Corpuscular HGB Conc 32.3 g/dL (31.6-35.5); Mean Corpuscular Volume 89.7 fL (83.0-100.0); Mean Platelet Volume 10.1 fL (9.4-12.4); Neutrophils # 8.7 K/mcL (1.6-8.9); Platelet Count 204 K/mcL (140-400); Red Blood Count 3.69 M/mcL (4.19-5.50); Red Cell Distribution Width 14.4 % (11.5-14.5); Segmented Neutrophils % 76.3 %
[2016-07-20] MEDS: *HR* OxyCODONE/APAP 10/325 TABLET PO SCH ×4 (08:54→21:43)
[2016-07-20] MEDS: Lactobacillus 1 EACH CAP.SPRINK PO SCH ×2 (08:54→21:42)
[2016-07-20] MEDS: Sennosides 8.6 MG TABLET PO SCH ×2 (08:54→21:42)
[2016-07-20] MEDS: Gabapentin 300 MG CAPSULE PO SCH ×3 (08:57→21:42)
[2016-07-20] MEDS: Cholecalciferol (D-3) 1,000 UNIT TABLET PO SCH (08:57)
--- NOTE | 2016-07-20 09:37 | Internal Med Progress Note ---
Date of Encounter: 07/20/16 Time of Encounter: 09:25 - Assessment and plan (1) Pneumonia Current Visit: No Status: Acute Assessment and plan: July 20. Continue Rocephin and Zithromax with lactobacillus. Chest CT was reviewed. Qualifiers: Pneumonia type: due to unspecified organism Laterality: bilateral Lung location: lower lobe of lung Qualified Code(s): J18.9 - Pneumonia, unspecified organism (2) COPD (chronic obstructive pulmonary disease) Current Visit: No Status: Chronic Assessment and plan: July 20. Continue present treatment. We will check room air oximetry in a.m. Anticipate discharge to alf tomorrow Qualifiers: COPD type: unspecified COPD Qualified Code(s): J44.9 - Chronic obstructive pulmonary disease, unspecified (3) Anemia Current Visit: Yes Status: Acute Assessment and plan: July 20. We will check anemia testing in a.m. Qualifiers: Anemia type: unspecified type Qualified Code(s): D64.9 - Anemia, unspecified - Subjective Interval history: July 20. He has no new complaints. - Constitutional Vitals: Temp Pulse Resp BP Pulse Ox 98.9 F 63 16 144/72 100 07/20/16 06:21 07/20/16 06:21 07/20/16 06:21 07/20/16 06:21 07/20/16 06:21 Exam: He is resting quietly in bed. His lungs show no wheezes or crackles. Heart is regular without murmurs gallops or ectopics. I reviewed his medications and lab results. Internal Medicine: Result - Labs CBC & Chem 7: 07/20/16 05:51 07/18/16 23:02 Labs: Short CBC 07/20/16 Range/Units 05:51 WBC 11.4 H (4.3-11.1) K/mcL Hgb 10.7 L D (12.9-16.9) g/dL Hct 33.1 L (37.5-50.1) % Plt Count 204 (140-400) K/mcL Neutrophils # 8.7 (1.6-8.9) K/mcL Urine 07/19/16 Range/Units 23:10 Urine Color Light Yellow (Yellow) Urine Clarity Clear (Clear) Urine pH 7.0 (5.0-8.0) pH Units Ur Specific [place] 1.015 (1.010-1.025) Urine Protein Negative (Neg-Trace) mg/dL Urine Glucose (UA) Normal (Normal) mg/dL - ABG Interpretation ABG results: PT/INR, D-dimer PT 14.1 Seconds (9.4-12.1) H 07/18/16 23:02 Consult Discharge Plan - Plan Referrals: Ced Wayne MD [Primary Care Provider] - 1 week
[2016-07-20] MEDS: Patient Taking Own Medication 1 EACH PO SCH ×2 (10:56→21:43)
--- NOTE | 2016-07-20 18:08 | Electrocardiograph Report ---
[address] [address] Test Date: 2016-07-18 Pat Name: Kilo Hunt Department: [id number] Room: [facility] Gender: M Best Worker: Woo : 1945 Requested By: Marleny Wilkins Order Number: [id number] Reading MD: Leidy Covington Measurements Intervals [place] Rate: 109 P: 247 WI: 229 QRS: -19 QRSD: 101 T: 164 QT: 314 QTc: 378 Interpretive Statements SIGNIFICANT BASELINE ARTIFACT RECOMMEND REPEAT EKG Electronically Signed On 07-20-2016 18:06:31 EDT by Leidy Covington
[2016-07-20] MEDS: Azithromycin 500 MG in D5% in Water 250 ML IVPB SCH (21:43)
[2016-07-21] MEDS: *HR* Enoxaparin 40 MG/0.4 ML SYRINGE SQ SCH (05:32)
[2016-07-21 06:36] VITALS: BP 170/71
[2016-07-21 06:38] LABS: Basophils % 0.3 %; Eosinophils # 0.2 K/mcL (0.0-0.6); Eosinophils % 2.7 %; Hematocrit 32.6 % (37.5-50.1); Hemoglobin 10.6 g/dL (12.9-16.9); Immature Granulocytes % 0.3 % (0-4); Lymphocytes # 1.8 K/mcL (0.6-4.6); Lymphocytes % 23.6 %; Mean Corpuscular HGB Conc 32.5 g/dL (31.6-35.5); Mean Corpuscular Volume 89.1 fL (83.0-100.0); Mean Platelet Volume 10.7 fL (9.4-12.4); Monocytes # 0.9 K/mcL (0.0-1.3); Monocytes % 11.2 %; Neutrophils # 4.8 K/mcL (1.6-8.9); Platelet Count 212 K/mcL (140-400); Red Blood Count 3.66 M/mcL (4.19-5.50); Red Cell Distribution Width 14.2 % (11.5-14.5); Segmented Neutrophils % 61.9 %
--- NOTE | 2016-07-21 08:09 | Discharge Summary ---
Date of Encounter: 07/21/16 Time of Encounter: 08:00 - Discharge Diagnosis (1) Pneumonia Priority: Primary Status: Acute Qualifiers: Pneumonia type: due to unspecified organism Laterality: bilateral Lung location: lower lobe of lung Qualified Code(s): J18.9 - Pneumonia, unspecified organism (2) COPD (chronic obstructive pulmonary disease) Priority: Secondary Status: Chronic Qualifiers: COPD type: unspecified COPD Qualified Code(s): J44.9 - Chronic obstructive pulmonary disease, unspecified (3) Anemia Priority: Secondary Status: Acute Qualifiers: Anemia type: unspecified type Qualified Code(s): D64.9 - Anemia, unspecified - Discharge Medications Prescriptions: Cefuroxime PO [Ceftin] 500 mg PO Q12HR 5 Days Azithromycin [Zithromax] 250 mg PO DAILY 5 Days Folic Acid 1 mg PO DAILY 30 Days Lactobacillus [Culturelle] 1 each PO BID 5 Days Home Medications: Gabapentin [Neurontin] 300 mg PO TID 04/29/16 [History] Lisinopril [Zestril] 5 mg PO DAILY 04/29/16 [History] Metoclopramide [Reglan] 5 mg PO QIDAC 04/29/16 [History] Pantoprazole Sodium [Protonix] 40 mg PO DAILY 04/29/16 [History] Sucralfate [Carafate] 1 gm PO QID 04/29/16 [History] Bifidobacterium Infantis [Align] 4 mg PO BID 07/18/16 [History] Cholecalciferol (Vitamin D3) [Vitamin D3] 1,000 unit PO QAM 07/18/16 [History] Organidin Mr 400 mg PO BID 07/18/16 [History] Oxybutynin [Ditropan] 5 mg PO DAILY 07/18/16 [History] Oxycodone HCl/Acetaminophen [Percocet 10-325 mg Tablet] 1 each PO QID 07/18/16 [ History] Sennosides [Senna] 8.6 mg PO BID 07/18/16 [History] Azithromycin [Zithromax] 250 mg PO DAILY 5 Days 07/21/16 [Rx] Cefuroxime PO [Ceftin] 500 mg PO Q12HR 5 Days 07/21/16 [Rx] Folic Acid 1 mg PO DAILY 30 Days 07/21/16 [Rx] Lactobacillus [Culturelle] 1 each PO BID 5 Days 07/21/16 [Rx] Allergies/Adverse Reactions: Allergies No Known Allergies Allergy (Verified 09/29/14 14:26) Date of admission: 07/19/16 16:22 Primary care physician: Ced Wayne MD - Patient Status Disposition: Transfer SNF Condition: Fair Overall status at discharge: patient is progressing back to baseline - Discharge Instructions Follow Up With: Ced Wayne MD [Primary Care Provider] - 1 week - Diet and Activity Activity: resume usual activities as tolerated Diet: advance to your usual diet Hospital course: Mr. Hunt is a 70 year old male who was brought from [facility] after staff report him to have had fever up to 102. He complained of dyspnea and cough worsening over the preceding hours. He was evaluated in emergency room and felt to have right lung pneumonia. He was admitted to [facility] for ongoing care needs. Initial orders were written by the emergency room physician. I saw him on July 19 and performed the history and physical. He was given Rocephin and Zithromax with lactobacillus. Chest CT showed scattered groundglass opacities throughout the lungs with stable small pulmonary nodules seen. He had good clinical response to antibiotics with normalization of WBC and resolution of the left shift by the day of discharge. Urine culture and blood culture showed no growth. He will continue on antibiotic and probiotics for [facility] Anemia testing was ordered with most results pending at time of discharge. His folate level was low at 2.6 so folic acid will be given at the jail. Dr. Wayne can follow-up on the anemia testing results. On July 20 he was stable for discharge back to [facility] where he will follow with Dr. Wayne. - Time Spent with Patient Total time spent providing and/or coordinating discharge services: - Constitutional Vitals: Temp Pulse Resp BP Pulse Ox 98.8 F 67 18 170/71 96 07/21/16 06:31 07/21/16 06:31 07/21/16 06:31 07/21/16 06:31 07/21/16 06:31
--- NOTE | 2016-07-21 08:17 | Physician Discharge Referral ---
ExtendedCare Referral Info Transfer To: [facility] Provider in Charge: Tarik Provider in Charge after Transfer: PCP (Ced Wayne M.D.) - Diagnosis (1) Pneumonia Priority: Primary Status: Acute (2) COPD (chronic obstructive pulmonary disease) Priority: Secondary Status: Chronic (3) Anemia Priority: Secondary Status: Acute Prognosis: Fair Aware of Diagnosis: Patient Aware of Prognosis: Patient - Transfer Medications Prescriptions: Cefuroxime PO [Ceftin] 500 mg PO Q12HR 5 Days Azithromycin [Zithromax] 250 mg PO DAILY 5 Days Folic Acid 1 mg PO DAILY 30 Days Lactobacillus [Culturelle] 1 each PO BID 5 Days Home Medications: Gabapentin [Neurontin] 300 mg PO TID 04/29/16 [History] Lisinopril [Zestril] 5 mg PO DAILY 04/29/16 [History] Metoclopramide [Reglan] 5 mg PO QIDAC 04/29/16 [History] Pantoprazole Sodium [Protonix] 40 mg PO DAILY 04/29/16 [History] Sucralfate [Carafate] 1 gm PO QID 04/29/16 [History] Bifidobacterium Infantis [Align] 4 mg PO BID 07/18/16 [History] Cholecalciferol (Vitamin D3) [Vitamin D3] 1,000 unit PO QAM 07/18/16 [History] Organidin Mr 400 mg PO BID 07/18/16 [History] Oxybutynin [Ditropan] 5 mg PO DAILY 07/18/16 [History] Oxycodone HCl/Acetaminophen [Percocet 10-325 mg Tablet] 1 each PO QID 07/18/16 [ History] Sennosides [Senna] 8.6 mg PO BID 07/18/16 [History] Azithromycin [Zithromax] 250 mg PO DAILY 5 Days 07/21/16 [Rx] Cefuroxime PO [Ceftin] 500 mg PO Q12HR 5 Days 07/21/16 [Rx] Folic Acid 1 mg PO DAILY 30 Days 07/21/16 [Rx] Lactobacillus [Culturelle] 1 each PO BID 5 Days 07/21/16 [Rx] Allergies/Adverse Reactions: Allergies No Known Allergies Allergy (Verified 09/29/14 14:26) - Respiratory Orders Oxygen / L per min (2 L/m when necessary to keep sats greater than equal to 90%) Smoking Cessation: Smoking cessation has been advised. For more information, call the [place] Tobacco Quit Line at 1-449-HOLX-NOW. - Mobility Orders Ambulate - Rehabiliation Orders Rehab Potential: Fair CERTIFICATION: I certify that the transfer of the above named patient to an Extended Care Facility is necessary for the continuing treatment of the diagnosis listed. The above information is true and accurate reflection of patient's current condition. Confidential - Redisclosure prohibited without a patient's written consent.
[2016-07-21 09:33] LABS: % Iron Saturation 18 % (20-55); Iron 33 mcg/dL (65-175); Transferrin 129 mg/dL (174-364)
[2016-07-21 10:04] LABS: Ferritin 137 ng/ml (22-275)
== END 2016-07-21 09:17 | DRG 190 ==
LOC: INPPIK 22:11 → EMEROOPIK 22:11 → INPPIK 07-19 01:59
PROVIDERS: ADMIT Internal Medicine; ATTEND Internal Medicine